=== PATIENT | male | born 1985 | race Caucasian/White ===

== ENCOUNTER 2018-10-18 19:08 | Emergency (ER) | payer SELFPAY ==
[2018-10-18 19:10] VITALS: BP 129/89; PULSE 127; RESP 20; TEMP 36.5; O2SAT 99; BMI 30.2
--- NOTE | 2018-10-18 20:27 | ED.VISSUMM ---
- ER Visit Summary Date of Service: 10/18/18 Chief Complaint: Dog bite to right calf History of Present Illness: The patient is a 33 M who presents with a dog bite to his right calf that occurred today. Patient was bitten by his neighbor's dog. Patient states this happened approximate 1 hour prior to arrival. Patient states his last tetanus was between 5 and 10 years ago. Patient states the pain is sharp and is worse when he bends his leg. Patient denies any paresthesias or weakness. Patient denies any other injuries. Physical Examination: Vital signs are stable. Patient is afebrile. Patient is in no acute distress. Skin is warm dry. There is a puncture wound and abrasion over the posterior aspect of the right calf. There is no active bleeding. There is some mild tenderness over the area. There is no erythema or warmth. There is no discharge or drainage. Sensation was intact to light touch. Achilles tendon is intact. Strength is 5/5 in plantar flexion and dorsiflexion of the ankle. Emergency Department Course and Treatment: Patient was given a tetanus booster here. Bacitracin dressing was applied. Patient was given prescription for Augmentin. Patient was instructed to follow-up with his primary care physician in 5 to 7 days. Patient understood and was agreeable with the plan. All questions were answered. Disposition: Discharge home Impression: Dog bite right leg This note was generated with payever dictation software. It may contain incorrect words, spelling, and punctuation that were not noted in review of the chart prior to signing ED Disposition - Plan for ED Patient: Disposition: Home or Assisted Living Diagnosis: Dog bite of calf Instructions: ED Bite Dog Prescriptions: Amox/Clavulanate Tablet [Augmentin Tablet] 875 mg PO Q12H #20 tab Referrals: NOT,DEFINED [Primary Care Provider] - 5-7 Days
[2018-10-18] MEDS: BACITRACIN 15 GM Tube 1 APPLIC TOPICAL (20:42)
[2018-10-18 20:53] VITALS: BP 133/75; PULSE 95; RESP 18
== END 2018-10-18 20:55 | disposition home or self-care (01) ==
LOC: ED 21:42
PROVIDERS: Emergency Provider Emergency Medicine
DX: S80.871A Other superficial bite, right lower leg, initial encounter (principal); W54.0XXA Bitten by dog, initial encounter; Y93.9 Activity, unspecified; Y92.9 Unspecified place or not applicable; Z72.0 Tobacco use
CPT/HCPCS: 90715; 99283

== ENCOUNTER 2020-09-19 11:49 | Emergency (ER) | payer MEDICAID, SELFPAY ==
[2020-09-19 11:50] VITALS: BP 110/72; PULSE 83; RESP 17; TEMP 36.9; O2SAT 97; BMI 31.3
[2020-09-19 12:11] LABS: Bedside Glucose 100 mg/dL (70-110)
--- NOTE | 2020-09-19 12:17 | EX.ED.DYSGE1 ---
HPI History of Present Illness Chief Complaint: Syncope Informant: patient Onset/Context/Timing Onset: Today Context: Sudden Onset Timing: Intermittent Quality: Lightheaded and hot Location: Generalized Current Severity: Gone Worsened by: Nothing Relieved by: Nothing Narrative Narrative: Patient presents with a syncopal episode that occurred today. Patient states he was in the hospital and his fianc?e was having surgery. Patient states that they brought her out from surgery and when he saw her he felt lightheaded. Patient states he then felt hot. Patient states he then passed out. Patient is unsure how long he was out for. Patient states after he woke up, he had one episode of nausea and vomiting. Patient denies any chest pain or palpitations. Patient denies any recent fevers or chills. Patient states she feels back to normal at the present time. PFSH PFSH no medical history Home Medications amoxicillin-pot clavulanate 875 mg PO Q12H #20 tab 10/18/18 [Rx Last Taken Unknown] Allergy/AdvReac Type Severity Reaction Status Date / Time No Known Allergies Allergy Verified 10/18/18 19:09 no surgical history Social History (Updated 09/19/20 @ 12:[address] Ciro Finlye, DO) Smoking Status: Current every day smoker tobacco type: cigarettes Smoking packs per day: 1.5 Smoking cigarettes per day: 30.0 substance use type: marijuana ROS ROS ED Constitutional Constitutional ED: Denies chills or fever(s) Eyes Eyes: Denies blurry vision or change in vision ENT ENT ED: Denies rhinorrhea or sore throat Cardiovascular Cardiovascular: Denies chest pain or palpitations Respiratory/Chest Respiratory/Chest: Denies cough or dyspnea Gastrointestinal Gastrointestinal: Reports nausea and vomiting Genitourinary Genitourinary ED: Denies dysuria or hematuria Musculoskeletal Musculoskeletal: Denies back pain or neck pain Integumentary Denies abscess or rash Neurologic Neurologic: Denies headache(s) or weakness Allergic/Immunologic Allergic/Immunologic ED: Denies mouth swelling or urticaria EXAM Physical Exam Const Vital Signs: 09/19/20 11:50 09/19/20 11:53 09/19/20 12:37 Temperature 98.4 F Temperature Source Oral Pulse Rate 83 Pulse Rate [Lying] 82 Pulse Rate [Sitting] 86 Pulse Rate [Standing] 113 H Respiratory Rate 17 Respiratory Effort Normal Respiratory Pattern Normal Blood Pressure 110/72 Blood Pressure [Lying] 108/70 Blood Pressure [Sitting] 122/74 H Blood Pressure [Standing] 117/73 Blood Pressure Mean 84 Blood Pressure Mean [Lying] 82 Blood Pressure Mean [Sitting] 90 Blood Pressure Mean [Standing] 87 Pulse Ox 97 Oxygen Delivery Method Room Air 09/19/20 13:00 Temperature Temperature Source Pulse Rate 82 Pulse Rate [Lying] Pulse Rate [Sitting] Pulse Rate [Standing] Respiratory Rate 17 Respiratory Effort Respiratory Pattern Blood Pressure 112/65 Blood Pressure [Lying] Blood Pressure [Sitting] Blood Pressure [Standing] Blood Pressure Mean 80 Blood Pressure Mean [Lying] Blood Pressure Mean [Sitting] Blood Pressure Mean [Standing] Pulse Ox 97 Oxygen Delivery Method Room Air Positive well nourished and well developed General Appearance ED: well developed HEENT Reports moist mucous membranes normocephalic and atraumatic Neck supple and no JVD Resp normal respiratory effort and clear to auscultation bilaterally Cardio regular rate, regular rhythm and no murmurs Rate: regular rate Rhythm: regular rhythm GI non-tender and non-distended Auscultation: normoactive bowel sounds Palpation: soft Extremity normal to inspection General Extremety ED: Negative for edema or tenderness General Extremity: Negative for edema Neuro oriented x3, CN's II-XII intact bilaterally and no sensory deficits noted Sensorium / Orientation: alert Motor Exam: strength 5/5 throughout Psych mental status grossly normal Skin Rashes: no rashes MDM MDM MDM Narrative Medical decision making narrative: BGT was normal. Orthostatic vital signs were obtained and his heart rate went up to 113 with standing. Patient was given IV fluids. This is most likely a vasovagal reaction. Patient was advised to drink plenty of fluids. Patient was instructed to follow-up with his primary care physician in 5 to 7 days. Patient understood and was agreeable with the plan. All questions were answered. Lab Data Labs: Laboratory Results - last 24 hr 09/19/20 12:07 POC Glucose 100 Discharge Plan Triage Chief Complaint: Syncope ED Provider: Ciro Finley Dx/Rx/DC Orders Clinical Impression: Syncope and collapse Instructions: ED Fainting, Vagal Reaction Prescriptions: No Action amoxicillin-pot clavulanate 875 MG tablet 875 mg PO Q12H Qty: 20 RF: 0 Primary Care Provider: Care Physician,No Primary Referrals: Care Physician,No Primary [Primary Care Provider] -
[2020-09-19 12:37] VITALS: BP 108/70; BP 117/73; BP 122/74; PULSE 113; PULSE 82; PULSE 86
[2020-09-19 13:00] VITALS: BP 112/65; PULSE 82; RESP 17; O2SAT 97
[2020-09-19] MEDS: 0.9% Normal Saline 1,000 ML 1000 ML IV (13:01)
[2020-09-19 14:24] VITALS: BP 134/77; PULSE 96; RESP 16; O2SAT 99
== END 2020-09-19 14:26 | disposition home or self-care (01) ==
LOC: ED 12:50
PROVIDERS: Emergency Provider Emergency Medicine
DX: R55 Syncope and collapse (principal); F17.210 Nicotine dependence, cigarettes, uncomplicated
CPT/HCPCS: 82962; 96360; 99284; J7030